=== PATIENT | male | born 1975 | race Caucasian/White ===

== ENCOUNTER 2022-06-10 05:28 | Inpatient (IN) | payer MEDICAID ==
[2022-06-03 10:11] LABS: BASOPHILS # (AUTO) 0.1 X10'3 (0-0.2); BASOPHILS % (AUTO) 1.1 % (0-1); EOSINOPHILS # (AUTO) 0.2 X10'3 (0-0.9); LYMPHOCYTES # (AUTO) 2.9 X10'3 (1.1-4.8); LYMPHOCYTES % (AUTO) 48.9 % (21-51); MEAN CORPUSCULAR HGB CONC 34.2 g/dL (33.0-36.5); MEAN CORPUSCULAR VOLUME 93.6 FL (78-98); MEAN PLATELET VOLUME 7.4 FL (7.4-10.4); MONOCYTES # (AUTO) 0.6 X10'3 (0-0.9); MONOCYTES % (AUTO) 10.5 % (2-12); NEUTROPHILS # (AUTO) 2.1 X10'3 (1.8-7.7); NEUTROPHILS % (AUTO) 35.5 % (42-75); PRE OP HEMATOCRIT 40.3 % (42.0-52.0); PRE OP HEMOGLOBIN 13.8 g/dL (14.0-17.9); PRE OP PLATELET COUNT 359 X10'3 (140-440); RED BLOOD COUNT 4.31 X10'6 (4.70-6.10); RED CELL DISTRIBUTION WIDTH 13.6 % (11.5-14.5)
[2022-06-03 10:51] LABS: ALBUMIN 4.2 G/DL (3.4-5.0); ALKALINE PHOSPHATASE 113 IU/L (46-116); BLOOD UREA NITROGEN 16 MG/DL (7-18); BUN/CREATININE RATIO 16.2 (5.4-32.0); CALCIUM 8.7 MG/DL (8.5-10.1); CHLORIDE 104 MMOL/L (99-107); CREATININE 0.99 MG/DL (0.60-1.10); PRE OP ANION GAP 12 (8-16); PRE OP AST 71 U/L (10-37); PRE OP BILIRUB, TOTAL 0.4 MG/DL (0.0-1.0); PRE OP GLUCOSE 108 MG/DL (70-104); PRE OP POTASSIUM 3.9 MMOL/L (3.4-5.1); PRE OP SODIUM 138 MMOL/L (135-145); TOTAL CARBON DIOXIDE 21.8 MMOL/L (24-32); TOTAL PROTEIN 8.6 G/DL (6.4-8.2); eGFR 82 ML/MIN
[2022-06-03 11:08] LABS: PRE OP ALT 119 U/L (30-65)
[~2022-06-10] VITALS: Ht 188 cm; Wt 91.8 kg
[2022-06-10] VITALS (23 sets, daily range): BP systolic 132–163; BP diastolic 8–108
[~2022-06-10 05:28] MED LIST: AMLO2.5T2 PO; ATEN-169 PO; DULO-31 PO; GABA-530 PO; METO-292 PO; PANT-47 PO; PRIM50TA27 PO; ROSU20TA31 PO; SUCR1TAB PO; ringers solution, lacted 1,000 ML IV SCH
[2022-06-10] MEDS ORDERED: famotidine 20mg tablet PO ONE (05:30)
[2022-06-10] MEDS ORDERED: albuterol 2.5 MG/3 ML nebule NEB PRN (05:30)
[2022-06-10] MEDS ORDERED: ceFOXitin 2GM-NS 100mL ADDvant 100 ML IV ONE (05:30)
[2022-06-10] MEDS ORDERED: metroNIDAZOLE-Flagyl 500mg/NS 100ML IVPB IV ONE (05:30)
[2022-06-10] MEDS ORDERED: MALTODEXTRIN/FRUCTOSE 0.68 KCAL/ML LIQUID 296ML BOTTLE PO ONE (05:30)
[2022-06-10] MEDS ORDERED: DOCUMENT DATE & TIME OF BETA-BLOCKER PO ONE (05:30)
[2022-06-10] MEDS ORDERED: tobramycin 40mg/ml inj ONE (06:41)
[2022-06-10] MEDS ORDERED: LIDOcaine 1% W/epiNEPHrine 1:100,000 20ml vial ONE (06:41)
[2022-06-10] MEDS ORDERED: BUPIVAcaine/PF 2.5 mg/ml (0.25%) 30ml vial ONE (06:41)
[2022-06-10] MEDS ORDERED: scopolamine 1mg/72 hr patch TD ONE (07:10)
[2022-06-10] MEDS ORDERED: sevoflurane 250ml liquid IH ONE (07:26)
[2022-06-10] MEDS ORDERED: morphine 4 MG/ML inj SYRINge IV PRN (07:30)
[2022-06-10] MEDS ORDERED: ringers solution, lacted 1,000 ML IV SCH (07:30)
[2022-06-10] MEDS ORDERED: morphine 2 MG/ML inj. syringe IV PRN ×2 (07:30)
[2022-06-10] MEDS ORDERED: ketorolac trometh. 30mg/ml inj. IV ONE (07:30)
[2022-06-10] MEDS ORDERED: labetalol 20mg/4ml (5mg/ml) syringe IV PRN (07:30)
[2022-06-10] MEDS ORDERED: hydrALAZINE 20mg/ml inj. IV PRN (07:30)
[2022-06-10] MEDS ORDERED: ondansetron/PF 4mg/2ml inj IV PRN ×2 (07:30→10:00)
[2022-06-10] MEDS ORDERED: meperidine/PF 25mg/ml syringe IV PRN (07:30)
[2022-06-10] MEDS ORDERED: proCHLORperazine 10 MG/2 ml inj IV PRN (07:30)
[2022-06-10] MEDS ORDERED: acetaminophen 1,000mg/100ml IV 100 ML IV PRN (07:30)
[2022-06-10] MEDS ORDERED: fentaNYL /PF 50mcg/ml 5ml ampule ONE (07:35)
[2022-06-10] MEDS ORDERED: midazolam 1 mg/ML 2ml injection ONE (07:35)
[2022-06-10] MEDS ORDERED: ondansetron/PF 4mg/2ml inj ONE (08:49)
[2022-06-10] MEDS ORDERED: rocuronium 10mg/ml inj IV ONE (08:49)
[2022-06-10] MEDS ORDERED: dexamethasone sod phosphate 4mg/ml inj. ONE (08:49)
[2022-06-10] MEDS ORDERED: LIDOcaine 2% (20mg/ml) 5ml vial ONE (08:49)
[2022-06-10] MEDS ORDERED: propofol inj 20 ML IV ONE ×2 (08:49)
[2022-06-10] MEDS ORDERED: morphine 4 MG/ML inj SYRINge ONE (09:11)
[2022-06-10] MEDS ORDERED: glycopyrrolate 0.2mg/ml inj ONE (09:33)
[2022-06-10] MEDS ORDERED: neostigmine methylsulfate 1 MG/ML 10ml vial ONE (09:33)
--- NOTE | 2022-06-10 09:48 | NUR ---
Received from OR via BED, accompanied by Anesthesiologist and OR NURSE. report given by Anesthesiolgist. PT ALERT AND REPORTS PAIN @ 9. RAMIREZ IN PLACE WITH CLEAR YELLOW URINE TO GRAVITY DRAINAGE. INCISION TO RT ABDOMEN WITH TELFA DRESSING WITH SCANT S/S DRAINAGE. Addendum: 06/10/22 at 1230 by Keya Medellin RN Amended: Links added.
[2022-06-10] MEDS: morphine 4 MG/ML inj SYRINge IV PRN ×2 (09:58→10:31)
[2022-06-10] MEDS ORDERED: normal saline 1000ml 1,000 ML IV SCH (10:00)
[2022-06-10] MEDS: potassium CL 20mEq in D5-1/2NS 1,000 ML IV SCH ×2 (10:00→20:53)
[2022-06-10] MEDS ORDERED: naloxone 0.4 mg/ml inj IV PRN (10:00)
[2022-06-10] MEDS ORDERED: HYDROmorph/NS 0.2 mg/ml PCA 100 ML IV SCH (11:00)
[2022-06-10] MEDS: HYDROmorph/NS 0.2 mg/ml PCA 100 ML IV SCH ×7 (11:21→23:00)
--- NOTE | 2022-06-10 11:48 | NUR ---
Report called to receiving nurseMARIAELENA. Transferred via BED WITH 1 BAG OF Belongings . RECIEIVING NURSE AT BEDSIDE TO RECEIVE PT; GIRLFRIEND AT BEDSIDE. TOLERATING ICE CHIPS. BLL; CALL LIGHT GIVEN. SIDERAILS UP X2. Special Issues communicated to receiving nurse. Addendum: 06/10/22 at 1230 by Keya Medellin RN Amended: Links added.
--- NOTE | 2022-06-10 12:14 | NUR ---
Patient in room ORTHO 4012. I have received report from Leyda RIVERA and had the opportunity to ask questions and assume patient care.
--- NOTE | 2022-06-10 12:24 | NUR ---
Patient states last time he took his beta eder was 0430 06/10/22
[2022-06-10] MEDS: gabapentin 100mg capsule PO SCH ×3 (13:28→20:35)
[2022-06-10] MEDS: metoclopramide 10mg tablet PO SCH ×2 (14:57→20:33)
[2022-06-10] MEDS: ceFOXitin inj 1,000 MG in normal saline 100ml IV soln 100 ML IV SCH (16:28)
--- NOTE | 2022-06-10 18:22 | NUR ---
Patient in room ORTHO 4012. I have received report from Chitra dick and had the opportunity to ask questions and assume patient care.
--- NOTE | 2022-06-10 18:39 | NUR ---
Problems reprioritized. Patient report given, questions answered & plan of care reviewed with Briseida RIVERA.
[2022-06-10] MEDS: sucralfate 1 gm tablet PO SCH (20:32)
[2022-06-10] MEDS: docusate sod 100mg capsule PO SCH (20:33)
[2022-06-10] MEDS: heparin, porcine 5000 units/ml vial SQ SCH (20:34)
[2022-06-10] MEDS: primidone 50mg tablet PO SCH (20:51)
[2022-06-10] MEDS: atorvastatin 20mg tablet PO SCH (20:52)
[2022-06-11] MEDS: ceFOXitin inj 1,000 MG in normal saline 100ml IV soln 100 ML IV SCH (00:03)
[2022-06-11] MEDS: HYDROmorph/NS 0.2 mg/ml PCA 100 ML IV SCH ×10 (01:00→19:00)
--- NOTE | 2022-06-11 01:18 | NUR ---
Dc'd duke catheter per patient request (post -op day 1). Tolerated well. Drained 900 cc from drainage bag.
--- NOTE | 2022-06-11 01:23 | NUR ---
Informed that patient was confused and standing in the hallway. He had ripped out his PIV and was under the impression that his sig other was coming to pick him up to leave. Managed to re-orient patient and he was very apologetic. Pt. appears to be withdrawing? Called MD to inform him of situation. Unfortunately the 2100 reading on the WILDLIFE BIOLOGY TECHNICIAN pump was not entered on the E-mar prior to all this taking place. MD came around to check on the patient later and WILDLIFE BIOLOGY TECHNICIAN has now been taken down and wasted with 2nd RN. Patient is now on the moderate ETOH protocol. Addendum: 06/12/22 at 0431 by Briseida Benton RN This was actually 06/12.
[2022-06-11 01:38] VITALS: BP 114/80
[2022-06-11] MEDS: metoclopramide 10mg tablet PO SCH ×4 (01:57→21:45)
[2022-06-11 06:00] VITALS: BP 131/87
--- NOTE | 2022-06-11 06:12 | NUR ---
Problems reprioritized. Patient report given, questions answered & plan of care reviewed with Allyssa RIVERA.
--- NOTE | 2022-06-11 06:15 | NUR ---
RECEIVED REPORT FROM MIGUEL JACOBS
[2022-06-11 06:16] LABS: BASOPHILS % (AUTO) 0.1 % (0-1); EOSINOPHILS % (AUTO) 0 % (0-6); HEMOGLOBIN 10.7 g/dl (14.0-17.9); LYMPHOCYTES # (AUTO) 1.2 X10'3 (1.1-4.8); LYMPHOCYTES % (AUTO) 9.5 % (21-51); MEAN CORPUSCULAR HEMOGLOBIN 32.8 PG (27.0-31.0); MEAN CORPUSCULAR HGB CONC 34.4 g/dL (33.0-36.5); MEAN CORPUSCULAR VOLUME 95.1 FL (78-98); MEAN PLATELET VOLUME 7.7 FL (7.4-10.4); MONOCYTES # (AUTO) 1.5 X10'3 (0-0.9); MONOCYTES % (AUTO) 11.8 % (2-12); NEUTROPHILS # (AUTO) 10.1 X10'3 (1.8-7.7); NEUTROPHILS % (AUTO) 78.6 % (42-75); PLATELET COUNT 229 X10'3 (140-440); RED BLOOD COUNT 3.26 X10'6 (4.70-6.10); RED CELL DISTRIBUTION WIDTH 13.6 % (11.5-14.5); WHITE BLOOD COUNT 12.8 X10'3 (4.5-11.0)
[2022-06-11 06:24] LABS: ALBUMIN 3.5 G/DL (3.4-5.0); ANION GAP 8 (8-16); BLOOD UREA NITROGEN 9 MG/DL (7-18); BUN/CREATININE RATIO 9.1 (5.4-32.0); CALCIUM 7.9 MG/DL (8.5-10.1); CHLORIDE 106 MMOL/L (99-107); CREATININE 0.99 MG/DL (0.60-1.10); GLUCOSE 114 MG/DL (70-104); POTASSIUM 3.8 MMOL/L (3.5-5.1); SODIUM 139 MMOL/L (135-145); TOTAL CARBON DIOXIDE 25.4 MMOL/L (24-32); eGFR 82 ML/MIN
[2022-06-11] MEDS: sucralfate 1 gm tablet PO SCH ×2 (07:29→21:44)
[2022-06-11] MEDS: docusate sod 100mg capsule PO SCH ×2 (07:30→21:44)
[2022-06-11] MEDS: duloxetine 30mg CAPSULE.DR PO SCH (07:31)
[2022-06-11] MEDS: gabapentin 100mg capsule PO SCH ×2 (07:31→12:50)
[2022-06-11] MEDS: pantoprazole 40mg Tablet.DR PO SCH (07:32)
[2022-06-11] MEDS: amLODIPine 2.5mg tablet PO SCH (07:33)
[2022-06-11] MEDS: atenolol 50mg tablet PO SCH (07:33)
[2022-06-11] MEDS: heparin, porcine 5000 units/ml vial SQ SCH ×2 (07:35→21:48)
[2022-06-11] MEDS ORDERED: folic acid 1mg/0.2ml inj IV SCH (08:00)
[2022-06-11 10:00] VITALS: BP 147/89
[2022-06-11] MEDS: potassium CL 20mEq in D5-1/2NS 1,000 ML IV SCH (12:40)
[2022-06-11 14:00] VITALS: BP 152/92
[2022-06-11] MEDS: PCA WASTE DOCUMENTATION MC SCH (14:13)
[2022-06-11] MEDS: gabapentin 300mg capsule PO SCH ×2 (17:52→21:44)
[2022-06-11 18:00] VITALS: BP 147/98
--- NOTE | 2022-06-11 18:16 | NUR ---
gave report to kapil kam
--- NOTE | 2022-06-11 18:20 | NUR ---
Patient in room ORTHO 4012. I have received report from Allyssa RIVERA and had the opportunity to ask questions and assume patient care.
[2022-06-11] MEDS: atorvastatin 20mg tablet PO SCH (21:43)
[2022-06-11] MEDS: primidone 50mg tablet PO SCH (21:49)
[2022-06-11] MEDS ORDERED: haloperidol lactate 5mg/ml inj IM PRN (21:55)
[2022-06-11] MEDS ORDERED: haloperidol 5mg tablet PO PRN (21:55)
[2022-06-11] MEDS ORDERED: dextrose 50%-water 50ml dispensing syringe IV PRN (21:55)
[2022-06-11 22:00] VITALS: BP 166/104
[2022-06-11] MEDS ORDERED: LORazepam 1 MG tablet PO ONE (22:20)
[2022-06-12] MEDS: PCA WASTE DOCUMENTATION MC SCH (01:14)
[2022-06-12] MEDS: LORazepam 2 mg/ml vial IV PRN ×4 (03:00→23:17)
--- NOTE | 2022-06-12 04:29 | NUR ---
Patient acting out again. Tried to give ativan again but patient had broken his IV and did not go through. Gave haldol IM.
[2022-06-12] MEDS: acetaminophen 325mg tablet PO PRN ×2 (05:32→17:22)
[2022-06-12 05:40] LABS: BASOPHILS % (AUTO) 0.2 % (0-1); EOSINOPHILS % (AUTO) 0.1 % (0-6); HEMATOCRIT 34.4 % (42.0-52.0); HEMOGLOBIN 11.9 g/dl (14.0-17.9); LYMPHOCYTES % (AUTO) 9.2 % (21-51); MEAN CORPUSCULAR HEMOGLOBIN 32.3 PG (27.0-31.0); MEAN CORPUSCULAR HGB CONC 34.5 g/dL (33.0-36.5); MEAN CORPUSCULAR VOLUME 93.7 FL (78-98); MEAN PLATELET VOLUME 8.1 FL (7.4-10.4); MONOCYTES # (AUTO) 1.4 X10'3 (0-0.9); MONOCYTES % (AUTO) 13.2 % (2-12); NEUTROPHILS # (AUTO) 8.1 X10'3 (1.8-7.7); NEUTROPHILS % (AUTO) 77.3 % (42-75); PLATELET COUNT 220 X10'3 (140-440); RED BLOOD COUNT 3.68 X10'6 (4.70-6.10); RED CELL DISTRIBUTION WIDTH 13.5 % (11.5-14.5); WHITE BLOOD COUNT 10.4 X10'3 (4.5-11.0)
--- NOTE | 2022-06-12 05:45 | NUR ---
Checked patients' temp and it was up to 103.0. Called MD. New orders for stat labs CBC/DIFF,CMP, C-reactive protein, lactic acid, UA and blood culures.
[2022-06-12 05:53] LABS: ALANINE AMINOTRANSFERASE 35 U/L (12-78); ALBUMIN 3.2 G/DL (3.4-5.0); ALBUMIN/GLOBULIN RATIO 0.9 (1.1-1.5); ALKALINE PHOSPHATASE 73 IU/L (46-116); ANION GAP 11 (8-16); ASPARTATE AMINO TRANSFERASE 30 U/L (10-37); BILIRUBIN,TOTAL 0.7 MG/DL (0.1-1.0); BLOOD UREA NITROGEN 9 MG/DL (7-18); BUN/CREATININE RATIO 8.3 (5.4-32.0); C-REACTIVE PROTEIN 3.83 MG/DL (0.0-0.5); CALCIUM 8.1 MG/DL (8.5-10.1); CHLORIDE 99 MMOL/L (99-107); CREATININE 1.09 MG/DL (0.60-1.10); GLUCOSE 136 MG/DL (70-104); SODIUM 134 MMOL/L (135-145); TOTAL CARBON DIOXIDE 24.3 MMOL/L (24-32); TOTAL PROTEIN 6.6 G/DL (6.4-8.2); eGFR 73 ML/MIN
[2022-06-12 05:59] LABS: POTASSIUM 2.9 MMOL/L (3.5-5.1)
[2022-06-12 06:00] VITALS: BP 163/102
[2022-06-12] MEDS ORDERED: magnesium 4gm in 100ml NS 100 ML IV PRN (06:00)
[2022-06-12] MEDS ORDERED: magnesium Cl slow-release 64mg tablet PO PRN (06:00)
[2022-06-12] MEDS ORDERED: magnesium 2GM in 50ml NS 50 ML IV PRN (06:00)
[2022-06-12] MEDS ORDERED: potassium CL 10mEq/100ml bag 100 ML IV PRN (06:00)
--- NOTE | 2022-06-12 06:37 | NUR ---
Patient in room ORTHO 4012. I have received report from eddy dick and had the opportunity to ask questions and assume patient care.
--- NOTE | 2022-06-12 06:45 | NUR ---
Called Md with regard to abnormal labs of potassium, CRp and lactic. New orders:BOlus 1 liter LR, replace potassium cautiously with effer-K and maintanence fluid D51/2 NS with 20K at 150. Continue full liquid diet.
--- NOTE | 2022-06-12 06:45 | NUR ---
Problems reprioritized. Patient report given, questions answered & plan of care reviewed with Tamiko RIVERA.
[2022-06-12] MEDS ORDERED: ringers solution, lacted 1,000 ML IV ONE (07:00)
[2022-06-12] MEDS: K and/or MAG REPLACEMENT MC SCH ×2 (07:50→20:00)
[2022-06-12] MEDS ORDERED: thiamine 100mg/ml 2ml inj. IV SCH (08:00)
[2022-06-12] MEDS ORDERED: folic acid 1mg tablet PO SCH (08:00)
[2022-06-12] MEDS: docusate sod 100mg capsule PO SCH (08:00)
[2022-06-12] MEDS: amLODIPine 2.5mg tablet PO SCH (08:21)
[2022-06-12] MEDS: sucralfate 1 gm tablet PO SCH ×2 (08:22→20:29)
[2022-06-12] MEDS: gabapentin 300mg capsule PO SCH ×3 (08:23→20:29)
[2022-06-12] MEDS: duloxetine 30mg CAPSULE.DR PO SCH (08:24)
[2022-06-12] MEDS: pantoprazole 40mg Tablet.DR PO SCH (08:25)
[2022-06-12] MEDS: atenolol 50mg tablet PO SCH (08:27)
[2022-06-12] MEDS: thiamine 100mg/ml 2ml inj. IV SCH (09:30)
[2022-06-12] MEDS: folic acid 1mg tablet PO SCH (09:45)
[2022-06-12] MEDS: nicotine 14mg patch - 24hr TD SCH (10:03)
[2022-06-12] MEDS: POTASSIUM BICARB 20meq eff tab 20 MEQ TABLET.EFF PO PRN ×3 (10:03→20:27)
[2022-06-12] MEDS: potassium CL 20mEq in D5-1/2NS 1,000 ML IV SCH ×3 (10:03→19:26)
[2022-06-12 10:38] LABS: C DIFF SPECIMEN=DIARRHEA? ACCEPTABLE; C DIFFICILE TOXINS A&B NEGATIVE (Neg)
[2022-06-12 10:59] VITALS: BP 116/65
[2022-06-12 14:04] LABS: LIPASE 71 U/L (73-393)
[2022-06-12] MEDS ORDERED: loperamide 2mg capsule PO PRN (16:40)
--- NOTE | 2022-06-12 17:20 | NUR ---
PAGED DR VICTORIA RE: PAGER ID: [phone] MESSAGE: LUISITO ACEVEDO. TEMP 101.4. WILL GIVE TYLENOL PER PROTOCOL. TRINI [id number] TELE
[2022-06-12] MEDS: loperamide 2mg capsule PO SCH (17:23)
[2022-06-12 18:00] VITALS: BP 122/81
--- NOTE | 2022-06-12 18:39 | NUR ---
Problems reprioritized. Patient report given, questions answered & plan of care reviewed with chris dick.
[2022-06-12] MEDS: metroNIDAZOLE-Flagyl 500mg/NS 100 ML IV SCH (19:24)
[2022-06-12] MEDS: atorvastatin 20mg tablet PO SCH (20:29)
[2022-06-12] MEDS: primidone 50mg tablet PO SCH (20:30)
[2022-06-12] MEDS: ciprofloxacin lact 400MG/200ML 200 ML IV SCH (20:43)
[2022-06-12] MEDS ORDERED: psyllium seed 3.4 gm packet PO SCH (21:00)
[2022-06-12 22:00] VITALS: BP 130/88
[2022-06-13 02:00] VITALS: BP 125/88
[2022-06-13] MEDS: potassium CL 20mEq in D5-1/2NS 1,000 ML IV SCH ×2 (04:10)
[2022-06-13 05:00] VITALS: BP 149/102
[2022-06-13 05:59] LABS: BASOPHILS % (AUTO) 0.2 % (0-1); EOSINOPHILS % (AUTO) 0.1 % (0-6); HEMATOCRIT 36.1 % (42.0-52.0); HEMOGLOBIN 12.4 g/dl (14.0-17.9); LYMPHOCYTES # (AUTO) 1.5 X10'3 (1.1-4.8); MEAN CORPUSCULAR HGB CONC 34.3 g/dL (33.0-36.5); MEAN CORPUSCULAR VOLUME 93.2 FL (78-98); MONOCYTES # (AUTO) 2.2 X10'3 (0-0.9); MONOCYTES % (AUTO) 16.4 % (2-12); NEUTROPHILS # (AUTO) 9.6 X10'3 (1.8-7.7); NEUTROPHILS % (AUTO) 72.3 % (42-75); PLATELET COUNT 207 X10'3 (140-440); RED BLOOD COUNT 3.87 X10'6 (4.70-6.10); RED CELL DISTRIBUTION WIDTH 13.7 % (11.5-14.5); WHITE BLOOD COUNT 13.3 X10'3 (4.5-11.0)
[2022-06-13 06:04] LABS: ALBUMIN 2.5 G/DL (3.4-5.0); ANION GAP 9 (8-16); BLOOD UREA NITROGEN 10 MG/DL (7-18); BUN/CREATININE RATIO 11.5 (5.4-32.0); CALCIUM 8.5 MG/DL (8.5-10.1); CHLORIDE 97 MMOL/L (99-107); CREATININE 0.87 MG/DL (0.60-1.10); GLUCOSE 160 MG/DL (70-104); SODIUM 132 MMOL/L (135-145); TOTAL CARBON DIOXIDE 26.4 MMOL/L (24-32); eGFR > 90 ML/MIN
--- NOTE | 2022-06-13 06:28 | NUR ---
Problems reprioritized. Patient report given, questions answered & plan of care reviewed with Jennifer RIVERA.
[2022-06-13 06:51] LABS: TOTAL CELLS COUNTED 100
[2022-06-13 06:52] LABS: PLATELET ESTIMATE NORMAL
--- NOTE | 2022-06-13 06:59 | NUR ---
Patient in room ORTH[facility] 4012. I have received report from MIGUEL Moore and had the opportunity to ask questions and assume patient care.
[2022-06-13] MEDS: K and/or MAG REPLACEMENT MC SCH ×2 (08:00→19:50)
[2022-06-13] MEDS: ciprofloxacin lact 400MG/200ML 200 ML IV SCH ×2 (08:21→19:23)
[2022-06-13] MEDS: metroNIDAZOLE-Flagyl 500mg/NS 100 ML IV SCH ×2 (08:22→21:03)
[2022-06-13] MEDS: duloxetine 30mg CAPSULE.DR PO SCH (08:23)
[2022-06-13] MEDS: sucralfate 1 gm tablet PO SCH ×2 (08:23→19:49)
[2022-06-13] MEDS: thiamine 100mg/ml 2ml inj. IV SCH (08:23)
[2022-06-13] MEDS: folic acid 1mg tablet PO SCH (08:24)
[2022-06-13] MEDS: pantoprazole 40mg Tablet.DR PO SCH (08:24)
[2022-06-13] MEDS: loperamide 2mg capsule PO SCH ×2 (08:24→19:50)
[2022-06-13] MEDS: amLODIPine 2.5mg tablet PO SCH (08:25)
[2022-06-13] MEDS: atenolol 50mg tablet PO SCH (08:25)
[2022-06-13] MEDS: gabapentin 300mg capsule PO SCH ×2 (08:25→19:48)
[2022-06-13] MEDS: nicotine 14mg patch - 24hr TD SCH (08:26)
[2022-06-13] MEDS: POTASSIUM BICARB 20meq eff tab 20 MEQ TABLET.EFF PO PRN ×2 (08:27→12:51)
[2022-06-13] MEDS: acetaminophen 325mg tablet PO PRN (08:57)
[2022-06-13] MEDS ORDERED: iohexol 350MG/ML 100ml bottle IV ONE (10:22)
[2022-06-13] MEDS ORDERED: HYDROmorphone 2mg tablet PO PRN (11:45)
[2022-06-13] MEDS ORDERED: acetaminophen 325mg tablet PO PRN (11:45)
[2022-06-13] MEDS ORDERED: HYDROmorphone 1 mg/ml syringe IV PRN (11:45)
[2022-06-13] MEDS ORDERED: morphine 2 MG/ML inj. syringe IV PRN (11:45)
[2022-06-13] MEDS: HYDROcodone/acetaminophen 10/325mg tab PO PRN ×3 (12:51→21:04)
--- NOTE | 2022-06-13 12:56 | NUR ---
Patient's can only milk pickup driver the patient between 0900 and 1400 tomorrow if he is being discharged.
[2022-06-13] MEDS ORDERED: lactose-reduced food (Ensure High Protein) 237ml bottle PO SCH (13:00)
--- NOTE | 2022-06-13 16:32 | NUR ---
PAGER ID: [phone] MESSAGE: Jennifer [phone] RE: Igor Mancera room 4012B - just wanted to let you know the CT has resulted.
[2022-06-13 18:00] VITALS: BP 131/89
--- NOTE | 2022-06-13 18:29 | NUR ---
Problems reprioritized. Patient report given, questions answered & plan of care reviewed with MIGUEL Moore.
[2022-06-13] MEDS: primidone 50mg tablet PO SCH (19:49)
[2022-06-13] MEDS ORDERED: LORazepam 1 MG tablet PO PRN (21:55)
[2022-06-13] MEDS ORDERED: LORazepam 2 mg/ml vial IV PRN (21:55)
[2022-06-13 22:00] VITALS: BP 144/62
[2022-06-14] MEDS ORDERED: potassium CL 20mEq in D5-1/2NS 1,000 ML IV SCH
[2022-06-14] MEDS: HYDROcodone/acetaminophen 10/325mg tab PO PRN ×5 (03:14→21:38)
[2022-06-14 05:00] VITALS: BP 131/69
--- NOTE | 2022-06-14 06:09 | NUR ---
Problems reprioritized. Patient report given, questions answered & plan of care reviewed with Jennifer RIVERA.
--- NOTE | 2022-06-14 06:38 | NUR ---
Patient in room ORTH[facility] 4012. I have received report from MIGUEL Moore and had the opportunity to ask questions and assume patient care.
[2022-06-14] MEDS: K and/or MAG REPLACEMENT MC SCH ×2 (08:00→20:00)
[2022-06-14 08:41] LABS: BASOPHILS % (AUTO) 0.3 % (0-1); EOSINOPHILS # (AUTO) 0.2 X10'3 (0-0.9); EOSINOPHILS % (AUTO) 2.1 % (0-6); HEMATOCRIT 34.4 % (42.0-52.0); HEMOGLOBIN 11.8 g/dl (14.0-17.9); LYMPHOCYTES # (AUTO) 1.5 X10'3 (1.1-4.8); LYMPHOCYTES % (AUTO) 14.5 % (21-51); MEAN CORPUSCULAR HEMOGLOBIN 32.4 PG (27.0-31.0); MEAN CORPUSCULAR HGB CONC 34.4 g/dL (33.0-36.5); MEAN CORPUSCULAR VOLUME 94.3 FL (78-98); MEAN PLATELET VOLUME 8.6 FL (7.4-10.4); MONOCYTES # (AUTO) 1.8 X10'3 (0-0.9); MONOCYTES % (AUTO) 16.6 % (2-12); NEUTROPHILS % (AUTO) 66.5 % (42-75); PLATELET COUNT 226 X10'3 (140-440); RED BLOOD COUNT 3.65 X10'6 (4.70-6.10); RED CELL DISTRIBUTION WIDTH 13.5 % (11.5-14.5); WHITE BLOOD COUNT 10.5 X10'3 (4.5-11.0)
[2022-06-14 08:55] LABS: ALBUMIN 2.5 G/DL (3.4-5.0); ANION GAP 8 (8-16); BLOOD UREA NITROGEN 9 MG/DL (7-18); C-REACTIVE PROTEIN 16.98 MG/DL (0.0-0.5); CALCIUM 8.4 MG/DL (8.5-10.1); CHLORIDE 98 MMOL/L (99-107); CHOL/HDL RATIO 2.4 (0.00-4.99); CHOLESTEROL 87 MG/DL (0-200); GLUCOSE 131 MG/DL (70-104); HDL CHOLESTEROL 36 MG/DL (35-60); LDL CHOLESTEROL 24 MG/DL (50-100); POTASSIUM 3.3 MMOL/L (3.5-5.1); SODIUM 134 MMOL/L (135-145); TOTAL CARBON DIOXIDE 28.3 MMOL/L (24-32); TRIGLYCERIDES 119 MG/DL (20-135); eGFR > 90 ML/MIN
[2022-06-14] MEDS: ciprofloxacin lact 400MG/200ML 200 ML IV SCH ×2 (08:56→19:52)
[2022-06-14] MEDS: amLODIPine 2.5mg tablet PO SCH (08:57)
[2022-06-14] MEDS: atenolol 50mg tablet PO SCH (08:57)
[2022-06-14] MEDS: loperamide 2mg capsule PO SCH ×2 (08:58→20:27)
[2022-06-14] MEDS: folic acid 1mg tablet PO SCH (08:58)
[2022-06-14] MEDS: gabapentin 300mg capsule PO SCH ×2 (08:58→20:27)
[2022-06-14] MEDS: duloxetine 30mg CAPSULE.DR PO SCH (08:58)
[2022-06-14] MEDS: thiamine 100mg/ml 2ml inj. IV SCH (08:59)
[2022-06-14] MEDS: pantoprazole 40mg Tablet.DR PO SCH (08:59)
[2022-06-14] MEDS: sucralfate 1 gm tablet PO SCH ×2 (08:59→20:27)
[2022-06-14 09:21] LABS: TOTAL CELLS COUNTED 100
[2022-06-14 09:22] LABS: PLATELET ESTIMATE NORMAL
[2022-06-14 10:00] VITALS: BP 139/91
[2022-06-14] MEDS: metroNIDAZOLE-Flagyl 500mg/NS 100 ML IV SCH ×2 (10:50→20:44)
[2022-06-14] MEDS: POTASSIUM BICARB 20meq eff tab 20 MEQ TABLET.EFF PO PRN ×3 (11:26→20:37)
--- NOTE | 2022-06-14 17:40 | NUR ---
Per Dr. Karson AMADOR IV fluids.
[2022-06-14 18:00] VITALS: BP 131/84
--- NOTE | 2022-06-14 18:31 | NUR ---
Problems reprioritized. Patient report given, questions answered & plan of care reviewed with MIGUEL Moore.
[2022-06-14] MEDS: atorvastatin 20mg tablet PO SCH (20:41)
[2022-06-14] MEDS: primidone 50mg tablet PO SCH (20:42)
[2022-06-14 22:00] VITALS: BP 117/81
[2022-06-15] MEDS: HYDROcodone/acetaminophen 10/325mg tab PO PRN ×4 (01:40→14:10)
[2022-06-15 06:00] VITALS: BP 125/83
--- NOTE | 2022-06-15 06:09 | NUR ---
Problems reprioritized. Patient report given, questions answered & plan of care reviewed with Jennifer RIVERA.
--- NOTE | 2022-06-15 06:21 | NUR ---
Patient in room ORTH[facility] 4012. I have received report from MIGUEL Moore and had the opportunity to ask questions and assume patient care.
[2022-06-15 07:04] LABS: BASOPHILS % (AUTO) 0.4 % (0-1); EOSINOPHILS # (AUTO) 0.3 X10'3 (0-0.9); EOSINOPHILS % (AUTO) 2.3 % (0-6); HEMATOCRIT 31.3 % (42.0-52.0); HEMOGLOBIN 10.6 g/dl (14.0-17.9); LYMPHOCYTES # (AUTO) 1.6 X10'3 (1.1-4.8); MEAN CORPUSCULAR HEMOGLOBIN 31.9 PG (27.0-31.0); MEAN CORPUSCULAR HGB CONC 33.9 g/dL (33.0-36.5); MEAN CORPUSCULAR VOLUME 94.1 FL (78-98); MEAN PLATELET VOLUME 8.2 FL (7.4-10.4); MONOCYTES # (AUTO) 1.9 X10'3 (0-0.9); MONOCYTES % (AUTO) 15.5 % (2-12); NEUTROPHILS # (AUTO) 8.4 X10'3 (1.8-7.7); NEUTROPHILS % (AUTO) 68.8 % (42-75); PLATELET COUNT 243 X10'3 (140-440); RED BLOOD COUNT 3.33 X10'6 (4.70-6.10); RED CELL DISTRIBUTION WIDTH 13.8 % (11.5-14.5); WHITE BLOOD COUNT 12.2 X10'3 (4.5-11.0)
[2022-06-15 07:23] LABS: ALBUMIN 2.4 G/DL (3.4-5.0); ANION GAP 10 (8-16); BLOOD UREA NITROGEN 9 MG/DL (7-18); BUN/CREATININE RATIO 10.6 (5.4-32.0); C-REACTIVE PROTEIN 10.52 MG/DL (0.0-0.5); CALCIUM 8.7 MG/DL (8.5-10.1); CHLORIDE 100 MMOL/L (99-107); CREATININE 0.85 MG/DL (0.60-1.10); GLUCOSE 107 MG/DL (70-104); POTASSIUM 3.9 MMOL/L (3.5-5.1); SODIUM 139 MMOL/L (135-145); TOTAL CARBON DIOXIDE 29.3 MMOL/L (24-32); eGFR > 90 ML/MIN
[2022-06-15 07:50] LABS: PLATELET ESTIMATE NORMAL; TOTAL CELLS COUNTED 100
[2022-06-15] MEDS ORDERED: metroNIDAZOLE 500mg tablet PO SCH (08:00)
[2022-06-15] MEDS: K and/or MAG REPLACEMENT MC SCH (08:00)
[2022-06-15] MEDS ORDERED: thiamine 100mg tablet PO SCH (08:00)
[2022-06-15] MEDS: amLODIPine 2.5mg tablet PO SCH (08:05)
[2022-06-15] MEDS: loperamide 2mg capsule PO SCH (08:05)
[2022-06-15] MEDS: duloxetine 30mg CAPSULE.DR PO SCH (08:05)
[2022-06-15] MEDS: folic acid 1mg tablet PO SCH (08:05)
[2022-06-15] MEDS: pantoprazole 40mg Tablet.DR PO SCH (08:05)
[2022-06-15] MEDS: sucralfate 1 gm tablet PO SCH (08:06)
[2022-06-15] MEDS: atenolol 50mg tablet PO SCH (08:07)
[2022-06-15] MEDS: gabapentin 300mg capsule PO SCH (08:07)
[2022-06-15] MEDS: thiamine 100mg/ml 2ml inj. IV SCH (08:07)
--- NOTE | 2022-06-15 08:25 | NUR ---
Initial: Pt s/p small bowel resection with primary anastomosis and reversal of loop ileostomy this admit per EMR. Currently on Low fiber diet w/ avg intake 62% of meals since diet advanced. Ensure High protein TID is also ordered though no intake documented. If pt consumes 100% of ONS will be meeting approximately 83% of est energy needs and 100% of est protein needs. LBM 06/14 receiving imodium. No nutrition intervention implemented at this time, will continue to monitor. Recs: 1. Continue Low fiber diet as tolerated 2. Ensure High protein TID 3. Routine anti-diarrheal per MD 4. Weekly wts Addendum: 06/15/22 at [address] Amended: Links added.
[2022-06-15 10:00] VITALS: BP 137/87
[2022-06-15] MEDS ORDERED: ciprofloxacin 250mg tablet PO SCH (10:00)
--- NOTE | 2022-06-15 12:04 | NUR ---
PAGER ID: [phone] MESSAGE: Jennifer [phone] RE: Igor Mancera room 4012B - patient would like to go home today.
--- NOTE | 2022-06-15 14:13 | NUR ---
PAGER ID: [phone] MESSAGE: Jennifer [phone] Re: Igor Mancera - can we please get discharge instructions. Thank you.
[2022-06-15] MEDS ORDERED: FOLI1TAB27 PO (14:38)
[2022-06-15] MEDS ORDERED: METR-159 PO (14:38)
[2022-06-15] MEDS ORDERED: CIPR250T4 PO (14:38)
--- NOTE | 2022-06-15 17:28 | NUR ---
Patient was discharged with instructions and verbalizing understanding of instructions, in wheelchair accomopanied by nursing staff and friend going home via private vehicle. All lines and tubes including PIV with intact cannula and tele monitor have been removed. All new medications have been escripted to the preferred pharmacy. Education has been provided and all questions have been answered. Patient already has a follow up appointment with the surgoen. Patient is stable and appropriate for discharge.
[2022-06-15] MEDS ORDERED: LORazepam 1 MG tablet PO PRN (21:55)
[2022-06-15] MEDS ORDERED: LORazepam 2 mg/ml vial IV PRN (21:55)
== END 2022-06-15 16:35 | disposition home or self-care (01) | DRG 230 ==
LOC: PAS IN 05:28 → ORTHO 4S 12:00
PROVIDERS: ADMIT Colon & Rectal Surgery; ATTEND Colon & Rectal Surgery
PROC: 0DBB0ZZ Excision of Ileum, Open Approach (ICD-10-PCS; principal; 2022-06-10 07:26)
PROC: BW211ZZ Computerized Tomography (CT Scan) of Abdomen and Pelvis using Low Osmolar Contrast (ICD-10-PCS; 2022-06-13)
DX: Z43.2 Encounter for attention to ileostomy (principal); E78.5 Hyperlipidemia, unspecified; E86.0 Dehydration; F12.90 Cannabis use, unspecified, uncomplicated; F10.239 Alcohol dependence with withdrawal, unspecified; E87.6 Hypokalemia; J44.9 Chronic obstructive pulmonary disease, unspecified; F17.210 Nicotine dependence, cigarettes, uncomplicated; G47.33 Obstructive sleep apnea (adult) (pediatric); I10 Essential (primary) hypertension; F41.9 Anxiety disorder, unspecified; R19.7 Diarrhea, unspecified; R79.89 Other specified abnormal findings of blood chemistry
CPT/HCPCS: 36415; 74177; 80048; 80053; 80061; 82948; 83605; 83690; 84132; 84145; 85007; 85025; 85610; 86140; 86885; 86900; 86901; 87040; 87081; 87324; 87449; 87811; 93005; A4618; A6449; A7000; C1758; G0378; J0131; J0694; J0744; J1100; J1170; J1630; J1644; J1885; J2060; J2250; J2270; J2405; J2704; J2710; J3010; J3260; J3411; J3480; J3490; J7120; Q9967

== ENCOUNTER 2022-08-16 10:40 | Day surgery (SDC) | payer MEDICAID ==
[~2022-08-16] VITALS: Ht 188 cm; Wt 95.4 kg
[~2022-08-16 10:40] MED LIST changes: +CIPR250T4 PO; +FOLI1TAB27 PO; +METR-159 PO; -ringers solution, lacted 1,000 ML IV SCH
[2022-08-16 10:50] VITALS: BP 144/94
[2022-08-16] MEDS ORDERED: ATEN50TA PO (11:06)
[2022-08-16] MEDS ORDERED: GABA300C PO (11:07)
[2022-08-16] MEDS ORDERED: MIDAZolam 1 MG/ML 5ML VIAL ONE (11:31)
[2022-08-16] MEDS ORDERED: fentaNYL/PF 50MCG/1 ML 2ML syringe ONE (11:31)
[2022-08-16 12:02] VITALS: BP 126/78
[2022-08-16 12:12] VITALS: BP 123/83
[2022-08-16 12:17] VITALS: BP 137/70
[2022-08-16 12:27] VITALS: BP 120/73
== END 2022-08-16 12:35 | disposition home or self-care (01) ==
LOC: GI LAB 10:40
PROVIDERS: ATTEND Internal Medicine Gastroenterology
DX: K64.8 Other hemorrhoids (principal); K92.1 Melena; Z79.899 Other long term (current) drug therapy; Z98.890 Other specified postprocedural states; Z98.0 Intestinal bypass and anastomosis status
CPT/HCPCS: 45380; 99152; J2250; J3010; J7030; Z7512; 99153; A4620

== ENCOUNTER 2023-03-31 05:23 | Day surgery (SDC) | payer MEDICAID ==
[2023-03-24 11:44] LABS: BASOPHILS # (AUTO) 0.1 X10'3 (0-0.2); BASOPHILS % (AUTO) 0.6 % (0-1); EOSINOPHILS # (AUTO) 0.2 X10'3 (0-0.9); EOSINOPHILS % (AUTO) 2.1 % (0-6); LYMPHOCYTES # (AUTO) 2.4 X10'3 (1.1-4.8); LYMPHOCYTES % (AUTO) 28.4 % (21-51); MEAN CORPUSCULAR HEMOGLOBIN 32.1 PG (27.0-31.0); MEAN CORPUSCULAR HGB CONC 33.7 g/dL (33.0-36.5); MEAN CORPUSCULAR VOLUME 95.2 FL (78-98); MEAN PLATELET VOLUME 8.2 FL (7.4-10.4); MONOCYTES # (AUTO) 1.1 X10'3 (0-0.9); MONOCYTES % (AUTO) 12.2 % (2-12); NEUTROPHILS # (AUTO) 4.9 X10'3 (1.8-7.7); NEUTROPHILS % (AUTO) 56.7 % (42-75); PRE OP HEMATOCRIT 43.5 % (42.0-52.0); PRE OP HEMOGLOBIN 14.7 g/dL (14.0-17.9); PRE OP PLATELET COUNT 258 X10'3 (140-440); RED BLOOD COUNT 4.56 X10'6 (4.70-6.10); RED CELL DISTRIBUTION WIDTH 14.5 % (11.5-14.5)
[2023-03-24 11:58] LABS: ALBUMIN 4.1 G/DL (3.4-5.0); ALBUMIN/GLOBULIN RATIO 1.1 (1.1-1.5); ALKALINE PHOSPHATASE 90 IU/L (46-116); BLOOD UREA NITROGEN 26 MG/DL (7-18); BUN/CREATININE RATIO 20.5 (10.0-20.0); CHLORIDE 100 MMOL/L (99-107); CREATININE 1.27 MG/DL (0.60-1.10); PRE OP ANION GAP 13 (8-16); PRE OP BILIRUB, TOTAL 0.4 MG/DL (0.0-1.0); PRE OP GLUCOSE 98 MG/DL (70-104); PRE OP POTASSIUM 4.3 MMOL/L (3.4-5.1); PRE OP SODIUM 135 MMOL/L (135-145); TOTAL CARBON DIOXIDE 21.6 MMOL/L (24-32); eGFR 61 ML/MIN
[2023-03-24 12:17] LABS: PRE OP ALT 94 U/L (30-65)
[2023-03-24 13:01] LABS: PRE OP AST 53 U/L (10-37)
[~2023-03-31] VITALS: Ht 188 cm; Wt 99.7 kg
[~2023-03-31 05:23] MED LIST changes: +ALBU8HFA PO; -ATEN-169 PO; +ATEN50TA PO; +BUPR-72 PO; +CARB100C9 PO; +CHOL500050 PO; -CIPR250T4 PO; -DULO-31 PO; -GABA-530 PO; +GABA300C PO; -METO-292 PO; -METR-159 PO; +NALT50TA PO; +OMEG-220 PO; +ONDA4TAB12 SL; -PRIM50TA27 PO; +PRIM50TA5 PO; +QUELT PO; -ROSU20TA31 PO; +ROSU20TA73 PO; +SERT-432 PO; +ringers solution, lacted 1,000 ML IV SCH
[2023-03-31 05:30] VITALS: BP 150/104
[2023-03-31] MEDS ORDERED: famotidine 20mg tablet PO ONE (05:30)
[2023-03-31] MEDS ORDERED: DOCUMENT DATE & TIME OF BETA-BLOCKER PO ONE (05:30)
[2023-03-31] MEDS ORDERED: fentaNYL/PF 50MCG/1 ML 2ML syringe ONE (07:13)
[2023-03-31] MEDS ORDERED: midazolam 1 mg/ML 2ml injection ONE (07:13)
[2023-03-31] MEDS ORDERED: propofol inj 20 ML IV ONE (07:14)
[2023-03-31] MEDS ORDERED: LIDOcaine 2% (20mg/ml) 5ml vial ONE (07:14)
[2023-03-31] MEDS ORDERED: ringers solution, lacted 1,000 ML IV SCH (07:20)
[2023-03-31] MEDS ORDERED: ondansetron/PF 4mg/2ml inj IV PRN (07:20)
[2023-03-31] MEDS ORDERED: morphine 4 MG/ML inj SYRINge IV PRN (07:20)
[2023-03-31] MEDS ORDERED: morphine 2 MG/ML inj. syringe IV PRN (07:20)
[2023-03-31] MEDS ORDERED: fentaNYL/PF 50MCG/1 ML 2ML syringe IV PRN ×2 (07:20)
[2023-03-31] MEDS ORDERED: hydrALAZINE 20mg/ml inj. IV PRN (07:20)
[2023-03-31] MEDS ORDERED: labetalol 20mg/4ml (5mg/ml) syringe IV PRN (07:20)
[2023-03-31] MEDS ORDERED: sevoflurane 250ml liquid IH ONE (07:35)
[2023-03-31 08:10] VITALS: BP 136/92
--- NOTE | 2023-03-31 08:18 | NUR ---
Received from OR via [facility], accompanied by Anesthesiologist DR PEREYRA and report given by Anesthesiologist. PT IS GROGGY BUT RESPONDS EASILY TO VERBAL STIMULI AND FOLLOWS COMMANDS. PT PLACED ON BEDSIDE MONITOR, VSS. PT IS IN SR WITH RATE IN 60'S. PT IS RECEIVING 8L O2 TO MASK AND TOLERATING WELL WITH O2 SAT >95%, WILL TITRATE DOWN AT PT TOLERATES. PT HAS 20G PIV TO LEFT WRIST WITH LR INFUSING ORDERED. PT DENIES PAIN AT THIS TIME. WILL CONTINUE TO ASSESS
[2023-03-31 08:20] VITALS: BP 138/94
[2023-03-31 08:30] VITALS: BP 143/99
[2023-03-31 08:40] VITALS: BP 143/102
[2023-03-31 08:50] VITALS: BP 138/91
--- NOTE | 2023-03-31 09:15 | NUR ---
PT HAS MET D/C CRITERIA. IV D/C'D. VSS. I HAVE REVIEWED D/C INSTRUCTIONS WITH PATIENT AND HE HAS VERBALIZED UNDERSTANDING OF INSTRUCTIONS. PATIENT D/C HOME WITH ALL BELONGINGS, FAMILY DROVE PT HOME.
== END 2023-03-31 09:10 | disposition home or self-care (01) ==
LOC: PAS 05:23
PROVIDERS: ATTEND Colon & Rectal Surgery
DX: K56.690 Other partial intestinal obstruction (principal); R10.9 Unspecified abdominal pain; J44.9 Chronic obstructive pulmonary disease, unspecified; I10 Essential (primary) hypertension; F41.9 Anxiety disorder, unspecified; F32.A Depression, unspecified; F43.10 Post-traumatic stress disorder, unspecified; G47.30 Sleep apnea, unspecified; K21.9 Gastro-esophageal reflux disease without esophagitis; Z72.89 Other problems related to lifestyle; G89.29 Other chronic pain; D50.9 Iron deficiency anemia, unspecified; B19.20 Unspecified viral hepatitis C without hepatic coma; E53.8 Deficiency of other specified B group vitamins; F17.210 Nicotine dependence, cigarettes, uncomplicated; Z79.899 Other long term (current) drug therapy; Z98.0 Intestinal bypass and anastomosis status; Z93.2 Ileostomy status; Z87.11 Personal history of peptic ulcer disease; Z90.49 Acquired absence of other specified parts of digestive tract; Z80.0 Family history of malignant neoplasm of digestive organs
CPT/HCPCS: 36415; 45378; 80053; 82948; 85025; 93005; J2250; J2704; J3010; J3490; J7030; J7120; Z7506; Z7512; A4618; A7000

== ENCOUNTER 2023-06-10 13:38 | Emergency (ER) | payer MEDICAID ==
[~2023-06-10] VITALS: Ht 188 cm; Wt 97.7 kg
[~2023-06-10 13:38] MED LIST changes: -ringers solution, lacted 1,000 ML IV SCH
[2023-06-10 13:41] VITALS: BP 161/103; PULSE 82; RESP 16; TEMP 98.7; O2SAT 96
== END 2023-06-10 15:09 | disposition home or self-care (01) ==
LOC: ER 13:40
DX: V98.8XXA Other specified transport accidents, initial encounter; Y93.89 Activity, other specified; Y92.89 Other specified places as the place of occurrence of the external cause; Y99.8 Other external cause status
CPT/HCPCS: 99283

== ENCOUNTER 2024-11-18 06:14 | Outpatient (CLI) | payer MEDICAID ==
[~2024-11-18 06:14] MED LIST changes: -NALT50TA PO; +NALT50TA5 PO; -OMEG-220 PO; +OMEG-270 PO; +ONDA-243 SL; -ONDA4TAB12 SL; -ROSU20TA73 PO; +ROSU20TA98 PO
[2024-11-18] MEDS ORDERED: LIDOcaine 1% 30ml preserv. free vial ONE (06:37)
[2024-11-18] MEDS ORDERED: iohexol 300 MG/1 ML 50ml polymer ONE (06:37)
[2024-11-18] MEDS ORDERED: LIDOcaine 1%/PF 5ML 10 MG/ML VIAL ONE (06:37)
[2024-11-18] MEDS ORDERED: GADOTERATE MEGLUMINE 7.5 MMOL/15 ML VIAL IV ONE (06:37)
== END 2024-11-18 23:59 | disposition home or self-care (01) ==
LOC: RAD 06:14
PROVIDERS: ATTEND Pediatrics Sports Medicine
DX: S43.432A Superior glenoid labrum lesion of left shoulder, initial encounter (principal); M75.102 Unspecified rotator cuff tear or rupture of left shoulder, not specified as traumatic; M75.02 Adhesive capsulitis of left shoulder; M75.42 Impingement syndrome of left shoulder; R29.898 Other symptoms and signs involving the musculoskeletal system; M25.512 Pain in left shoulder; Z79.899 Other long term (current) drug therapy; X58.XXXA Exposure to other specified factors, initial encounter; Y93.89 Activity, other specified; Y92.89 Other specified places as the place of occurrence of the external cause; Y99.8 Other external cause status
CPT/HCPCS: 23350; 73222; 77002; A9575; J2003; J3490; Q9967

== ENCOUNTER 2025-02-11 10:53 | Outpatient (CLI) | payer MEDICAID ==
--- NOTE | 2025-02-11 16:23 | RADIOLOGY REPORT ---
PROCEDURE: MR MRI C SPINE INDICATION: OTHER CERVICAL DISC DEGENERATION, UNSP CERVICAL REGION EXAM DATE: 02/11/2025 11:23 AM COMPARISON: None TECHNIQUE: MRI cervical spine without intravenous contrast. FINDINGS: Limited by motion. The cervical alignment is intact. There are degenerative endplate changes with anterior osteophytes mid to lower cervical levels. The visualized posterior fossa and craniocervical junction are intact. The intrinsic cervical cord signal appears intact. There is no prevertebral soft tissue swelling. The visualized paraspinal soft tissues are otherwise unremarkable. The following axial levels are detailed below: C2-C3: Unremarkable. C3-C4: Mild posterior disc bulge. No significant central canal or neural foraminal stenosis. C4-C5: Mild posterior disc osteophyte complex complicated by facet arthropathy associated with mild to moderate bilateral neural foraminal stenosis. No significant central canal stenosis. C5-C6: Mild posterior disc osteophyte complex complicated by facet arthropathy associated with mode rate to severe right neural foraminal stenosis. No significant central canal stenosis. C6-C7: Unremarkable. C7-T1: Unremarkable. IMPRESSION: 1. Limited by motion. Multilevel degenerative disease. No significant central canal stenosis. Neur al foraminal stenosis as above. No definite abnormal cord signal identified. HS:Y
== END 2025-02-11 23:59 | disposition home or self-care (01) ==
LOC: MRI02 10:53
PROVIDERS: ATTEND Pediatrics Sports Medicine
DX: M50.11 Cervical disc disorder with radiculopathy, high cervical region (principal); M25.512 Pain in left shoulder; M75.02 Adhesive capsulitis of left shoulder; M75.42 Impingement syndrome of left shoulder; R29.898 Other symptoms and signs involving the musculoskeletal system; M48.02 Spinal stenosis, cervical region; M47.22 Other spondylosis with radiculopathy, cervical region
CPT/HCPCS: 72141

== ENCOUNTER 2025-07-07 12:17 | Outpatient (CLI) | payer MEDICAID ==
--- NOTE | 2025-07-07 13:28 | RADIOLOGY REPORT ---
EXAM: MR MRI HEAD HISTORY: HEADACHE COMPARISON: None TECHNIQUE: Multiplanar multisequence noncontrast MR images of the brain were performed. FINDINGS: No intracranial mass, midline shift, or hydrocephalus are identified. There is mild Right frontal lobe encephalomalacia (images 18-21, series 8). No evidence of acute infarct on the diffusion-weighted images. T2 gradient echo images are negative for abnormal accumulation of intracranial blood products. Flow voids are present in the major intracranial vessels. Sella is partially empty. The corpus callosum and craniocervical junction are unremarkable. The optic globes are symmetric. There is mild mucosal thickening of the left frontal, bilateral ethmoid, and bilateral maxillary sinuses. The bilateral mastoid air cells are clear. IMPRESSION: 1. No evidence of acute infarct or other acute intracranial process. 2. Mild right frontal lobe encephalomalacia. 3. Partially empty sella incidentally noted. 4. Mild paranasal sinus disease.
== END 2025-07-07 23:59 | disposition home or self-care (01) ==
LOC: MRI02 12:17
PROVIDERS: ATTEND Student in an Organized Health Care Education/Training Program
DX: G93.89 Other specified disorders of brain (principal); R51.9 Headache, unspecified; J32.2 Chronic ethmoidal sinusitis; J32.0 Chronic maxillary sinusitis; J32.1 Chronic frontal sinusitis
CPT/HCPCS: 70551